=== PATIENT | male | born 2005 | race Caucasian/White ===

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

== ENCOUNTER 2025-05-23 18:42 | Emergency (ER) | payer BC, MEDICAID, SELFPAY ==
[2025-05-23 18:47] VITALS: BP 124/67; PULSE 82; RESP 18; TEMP 36.9; O2SAT 99; BMI 24.4
--- NOTE | 2025-05-23 18:57 | W.ED.EXTPRO ---
HPI - Extremity Problem General: Chief complaint: Extremity Injury, Lower Stated complaint: LT Knee Pain History of Present Illness: 19-year-old man with history of autism who presents emergency room with left knee pain. Says he bent down and he feels like it came out of place and when he stood back up it popped back in. Currently has full range of motion. No deformities. Related Data Home Medications ?Medication ?Instructions ?Recorded ?Confirmed Lamictal 200 mg PO BID 09/23/24 09/23/24 Pristiq 50 mg PO DAILY 09/23/24 09/23/24 cholecalciferol (vitamin D3) 50 50 mcg PO DAILY 09/23/24 09/23/24 mcg (2,000 unit) capsule (D3-2000) gabapentin 400 mg PO BID 09/23/24 09/23/24 guanfacine 3 mg tablet,extended 3 mg PO DAILY 09/23/24 09/23/24 release 24 hr Previous Rx's ?Medication ?Instructions ?Recorded desvenlafaxine succinate 25 mg 25 mg PO DAILY 30 days #30 tabs 09/26/24 tablet,extended release 24 hr (Pristiq) Allergies Allergy/AdvReac Type Severity Reaction Status Date / Time azithromycin Allergy ADR-Nausea Verified 05/23/25 18:54 erythromycin base Allergy ADR-Nausea Verified 05/23/25 18:54 Review of Systems Narrative: Constitutional symptoms: Negative except as documented in HPI. Skin symptoms: Negative except as documented in HPI. Eye symptoms: Negative except as documented in HPI. ENMT symptoms: Negative except as documented in HPI. Respiratory symptoms: Negative except as documented in HPI. Cardiovascular symptoms: Negative except as documented in HPI. Gastrointestinal symptoms: Negative except as documented in HPI. Genitourinary symptoms: Negative except as documented in HPI. Musculoskeletal symptoms: Negative except as documented in HPI. Neurologic symptoms: Negative except as documented in HPI. Psychiatric symptoms: Negative except as documented in HPI. Endocrine symptoms: Negative except as documented in HPI. Physical Exam Narrative: EXAM NARRATIVE: General: Alert, no acute distress. Skin: warm and dry Head: Normocephalic Neck: Trachea midline Eye: Extraocular movements are intact. Ears, nose, mouth and throat: Oral mucosa moist Respiratory: Respirations are non-labored Musculoskeletal: Normal ROM, no deformities. Gastrointestinal: Abdomen does not appear distended Neurological: Alert and oriented, No focal neurological deficit observed. Psychiatric: Cooperative, appropriate mood & affect. Course Vital Signs: Vital signs: Vital Signs Temperature 98.5 F 05/23/25 18:47 Pulse Rate 82 05/23/25 18:47 Respiratory Rate 18 05/23/25 18:47 Blood Pressure 124/67 05/23/25 18:47 Pulse Oximetry 99 05/23/25 18:47 Oxygen Delivery Me thod Room Air 05/23/25 18:47 MDM - Extremity (Nontraumatic) Medical Decision Making Medical decision making: Differential diagnosis including but not limited to and based on the above HPI, review of systems and physical exam: In this patient with a musculoskeletal extremity traumatic injury and x-ray is being ordered to rule out fractures and dislocations. Orders placed to evaluate differential diagnosis based on the above differential, HPI and physical exam X-ray of the left knee: No acute process. Films were interpreted by myself the emergency room provider and pending final radiology review. I reviewed the patient's medical record. Assessment and plan: Knee injury - Discharged home - Discussed plan with patient. Answered any questions. - Evaluation and treatment of this problem were appropriate in the emergency setting. All radiology interpretation(s) finalized by discharge Discharge Plan Discharge Patient Disposition: Home Clinical Impression: Knee injury Condition: Stable Prescriptions: No Action Lamictal tablet 200 mg PO BID Pristiq tablet 50 mg PO DAILY cholecalciferol (vitamin D3) [D3-2000] 50 mcg (2,000 unit) Capsule 50 mcg PO DAILY guanfacine 3 mg Tablet Extended Release 24 Hr 3 mg PO DAILY gabapentin capsule 400 mg PO BID desvenlafaxine succinate [Pristiq] 25 mg tablet extended release 24 hr 25 mg PO DAILY 30 Days Qty: 30 1RF Rx Instructions: Take with 50 mg tablets for total of 75 mg daily. Discharge Orders: Discharge ED (Routine); Ordered 05/23/25 Ordered By: Tanya Gatica Referrals: Larry Rubio MD [Physician, Orthopedics] Referral Note: Please call for follow-up with orthopedics if pain persists Discharge Diet: Usual diet Discharge Activity: Increase activity as tolerated Patient Instructions: Knee Pain (ED), Opioid Safety, Pain Management, Patient Portal & Penny Instructions Activity Restrictions/Additional Instructions: Thank you for choosing [facility] [place] for your healthcare needs today. You have been screened and evaluated and felt safe for discharge. Health conditions do change or evolve sometimes and as such it is important that you follow up with your Primary Doctor to be re checked, 3-5 days is a general good time frame for follow up. You are always welcome to return to the ED for re assessment if your symptoms are worsening or you have new concerns Print Language: British Coding Level of Care Code ED Internal Revenue Service Agent for Concetta Castellanos
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
[2025-05-23 19:40] VITALS: BP 125/56; PULSE 76; O2SAT 98
== END 2025-05-23 19:42 | disposition home or self-care (01) ==
PROVIDERS: Emergency Provider Emergency Medicine
DX: S89.92XA Unspecified injury of left lower leg, initial encounter (principal); X58.XXXA Exposure to other specified factors, initial encounter
CPT/HCPCS: 73560; 99283; E0114